=== PATIENT | female | born 1970 | race Caucasian/White ===

== ENCOUNTER 2020-11-15 13:32 | Inpatient (IN) | payer MEDICARE, OTHER ==
[~2020-11-15] VITALS: Ht 177.8 cm; Wt 85.7 kg
[2020-11-15] MEDS ORDERED: ALBU0.63 HHN (16:52)
[2020-11-15] MEDS ORDERED: BUDE0.5A HHN (16:52)
[2020-11-15] MEDS ORDERED: ESCI20TA PO (16:52)
[2020-11-15] MEDS ORDERED: FAMO-132 PO (16:52)
[2020-11-15] MEDS ORDERED: CYAN10006 IJ (16:52)
[2020-11-15] MEDS ORDERED: BLOO-668 IN (16:52)
[2020-11-15] MEDS ORDERED: ACET-2154 PO (16:52)
[2020-11-15] MEDS ORDERED: ARFO15VI HHN (16:52)
[2020-11-15] MEDS ORDERED: APIX5TAB PO (16:52)
[2020-11-15] MEDS ORDERED: LEVO100T PO (17:23)
[2020-11-15] MEDS ORDERED: FURO-151 PO (17:23)
[2020-11-15] MEDS ORDERED: GABA-532 PO ×2 (17:23)
[2020-11-15] MEDS ORDERED: GABA800T PO (17:23)
[2020-11-15] MEDS ORDERED: POTA10CA43 PO (17:23)
[2020-11-15] MEDS ORDERED: LEVA0.6320 HHN (17:23)
[2020-11-15] MEDS ORDERED: PRIM50TA27 PO (17:23)
[2020-11-15] MEDS ORDERED: PRED1TAB PO (17:23)
[2020-11-15] MEDS ORDERED: OLAN10TA3 PO (17:23)
[2020-11-15] MEDS ORDERED: FOLI1TAB94 PO (17:23)
[2020-11-15] MEDS ORDERED: GABA800T11 PO (17:23)
[2020-11-15] MEDS ORDERED: IPRA0.2S48 NEB (17:23)
[2020-11-15] MEDS ORDERED: METF500T PO (17:23)
[2020-11-15] MEDS ORDERED: PANT40TA2 PO (17:23)
[2020-11-15 18:10] VITALS: BP 102/63
--- NOTE | 2020-11-15 18:20 | NUR ---
Patient admitted from [facility], alert, oriented x4, medications varified with dr acuna
[2020-11-15] MEDS ORDERED: ALBU2.5V38 IH (18:50)
[2020-11-15] MEDS ORDERED: GABA300C PO (18:54)
[2020-11-15] MEDS ORDERED: HYDR-3972 PO (18:57)
[2020-11-15 20:13] VITALS: BP 95/56
[2020-11-15] MEDS ORDERED: DEXTROSE 50% 50 ML DISP.SYRIN IV PRN (20:15)
[2020-11-15] MEDS ORDERED: Medication Not On Formulary EA (Olanzapine (Zyprexa) 10 MG) PO SCH (21:00)
[2020-11-15] MEDS ORDERED: BLOOD SUGAR DIAGNOSTIC 1 EACH STRIP VI SCH (21:00)
[2020-11-15] MEDS: APIXABAN 5 MG TABLET PO SCH (21:05)
[2020-11-15] MEDS: HYDROCODONE/APAP 5-325MG TABLET PO PRN (21:05)
[2020-11-15] MEDS: PRIMIDONE 50 MG TABLET PO SCH (21:06)
[2020-11-15] MEDS: BLOOD SUGAR DIAGNOSTIC 1 EACH STRIP VI SCH (21:06)
[2020-11-15] MEDS: OLANZAPINE 5 MG TABLET PO SCH (21:06)
[2020-11-15] MEDS: GABAPENTIN 300 MG CAPSULE PO SCH (21:06)
[2020-11-15] MEDS: INSULIN REGULAR, HUMAN 300 UNIT/3 ML VIAL SQ PRN (21:29)
[2020-11-15] MEDS: ALBUTEROL SULFATE 2.5 MG/3 ML NEBU IH SCH ×2 (21:40→23:30)
[2020-11-15] MEDS: IPRATROPIUM BROMIDE 0.5 MG/2.5 ML NEBU NEB SCH ×2 (21:40→23:30)
[2020-11-16] MEDS ORDERED: LEVALBUTEROL HCL NEB 0.63 MG/3 ML NEBU NEB SCH
[2020-11-16] MEDS: ALBUTEROL SULFATE 2.5 MG/3 ML NEBU IH SCH ×6 (03:30→22:34)
[2020-11-16] MEDS: IPRATROPIUM BROMIDE 0.5 MG/2.5 ML NEBU NEB SCH ×6 (03:30→22:34)
[2020-11-16 04:00] VITALS: BP 102/67
[2020-11-16] MEDS: LEVOTHYROXINE SODIUM 100 MCG TABLET PO SCH (06:02)
[2020-11-16] MEDS: PANTOPRAZOLE SODIUM 40 MG TABLET.DR PO SCH ×2 (06:02→10:32)
[2020-11-16] MEDS: BLOOD SUGAR DIAGNOSTIC 1 EACH STRIP VI SCH ×4 (06:06→20:12)
--- NOTE | 2020-11-16 06:17 | NUR ---
Admitted 50 year old Female with diagnosis COPD Exacerbation. Pt in No Acute Distress, no SOB, on 3L NC saturating @94%. C/o 5/10 pain in both ankles " burning sensation" Administered NORCO PRN, effective. VSS. Pt oriented to ARU, floor, assigned room number, call light usage, pt verbalized understanding. Pt A&Ox4, able to make needs known. Medications from sending facility entered. Dr. Reinoso and Dr. Jennings aware of admission. Pt unable to ambulate, bedbound. Incontinent of both B?B in diaper. Kept clean dry and comfortable. MRSA swab sent to lab. Belongings inventoried. slep well throughout the night. No new changes. Call light and belongings within reach. Safety measures in place. Will continue with plan of care and endorse to day shift nurse.
[2020-11-16 08:16] VITALS: BP 137/53
[2020-11-16] MEDS ORDERED: Medication Not On Formulary EA (Escitalopram Oxalate (Lexapro) 20 MG) PO SCH (09:00)
[2020-11-16] MEDS ORDERED: FAMOTIDINE 20 MG TABLET PO SCH (09:00)
[2020-11-16] MEDS ORDERED: predniSONE 1 MG TABLET PO SCH (09:00)
[2020-11-16] MEDS ORDERED: BUDESONIDE 0.5 MG/2 ML NEBU IH SCH (09:00)
[2020-11-16] MEDS ORDERED: POTASSIUM CHLORIDE 10 MEQ TAB.PRT.SR PO SCH (09:00)
[2020-11-16] MEDS: GABAPENTIN 100 MG CAPSULE PO SCH ×2 (10:32→15:47)
[2020-11-16] MEDS: ESCITALOPRAM OXALATE 10 MG TABLET PO SCH (10:32)
[2020-11-16] MEDS: FUROSEMIDE 40 MG TABLET PO SCH ×2 (10:32→16:49)
[2020-11-16] MEDS: FOLIC ACID 1 MG TABLET PO SCH (10:32)
[2020-11-16] MEDS: predniSONE 5 MG TABLET PO SCH (10:32)
[2020-11-16] MEDS: METFORMIN HCL 500 MG TABLET PO SCH ×2 (10:33→16:49)
[2020-11-16] MEDS: APIXABAN 5 MG TABLET PO SCH ×2 (10:35→16:51)
[2020-11-16] MEDS: HYDROCODONE/APAP 5-325MG TABLET PO PRN ×3 (10:46→23:11)
[2020-11-16 15:36] VITALS: BP 96/54
[2020-11-16] MEDS: INSULIN REGULAR, HUMAN 300 UNIT/3 ML VIAL SQ PRN (17:18)
[2020-11-16] MEDS: ACETAMINOPHEN 325 MG TABLET PO PRN (19:55)
[2020-11-16 20:42] VITALS: BP 105/58
[2020-11-16] MEDS: PRIMIDONE 50 MG TABLET PO SCH (21:44)
[2020-11-16] MEDS: GABAPENTIN 300 MG CAPSULE PO SCH (21:44)
[2020-11-16] MEDS: OLANZAPINE 5 MG TABLET PO SCH (21:44)
[2020-11-17] MEDS: ALBUTEROL SULFATE 2.5 MG/3 ML NEBU IH SCH ×6 (02:21→23:08)
[2020-11-17] MEDS: IPRATROPIUM BROMIDE 0.5 MG/2.5 ML NEBU NEB SCH ×6 (02:21→23:08)
[2020-11-17 04:00] VITALS: BP 102/56
--- NOTE | 2020-11-17 05:03 | NUR ---
Starting of shift received Pt in No Acute Distress, no SOB, Pt has dx of COPD on 3L NC saturating @96%. All due medication administered PO as ordered and tolerated well, C/o moderate pain in both ankles " aching Administered NORCO PRN, Ice pack offered and effective. VSS. Pt A&Ox4, able to make needs known. Pt unable to ambulate, bedbound. Incontinent of both B/B in diaper. Kept clean dry and comfortable. slept well throughout the night. No further c/o pain reported Call light and belongings within reach. Safety measures in place. Will continue with plan of care and endorse to day shift nurse accordingly.
[2020-11-17 05:46] LABS: BASOPHILS % (AUTO) 0.7 % (0.0-2.0); EOSINOPHILS # (AUTO) 0.1 K/uL (0.0-0.7); EOSINOPHILS % (AUTO) 1.9 % (0.0-7.0); HEMATOCRIT 30.6 % (31.2-41.9); HEMOGLOBIN 9.7 g/dL (10.9-14.3); LYMPHOCYTES # (AUTO) 2.6 K/uL (20.0-40.0); LYMPHOCYTES % (AUTO) 36.2 % (20.5-51.5); MEAN CORPUSCULAR HEMOGLOBIN 29.2 uug (24.7-32.8); MEAN CORPUSCULAR HGB CONC 32 g/dL (32.3-35.6); MEAN CORPUSCULAR VOLUME 91.8 fL (75.5-95.3); MONOCYTES # (AUTO) 0.5 K/uL (2.0-10.0); MONOCYTES % (AUTO) 6.5 % (0.0-11.0); NEUTROPHILS # (AUTO) 3.9 K/uL (1.8-8.9); NEUTROPHILS % (AUTO) 54.7 % (38.5-71.5); PLATELET COUNT (AUTO) 315 K/uL (179-408); RED BLOOD CELL COUNT(AUTO) 3.33 MIL/uL (3.63-4.92); WHITE BLOOD COUNT (AUTO) 7.1 K/uL (3.8-11.8)
[2020-11-17 06:10] LABS: BILIRUBIN,TOTAL 0.3 mg/dL (0.2-1.0); CREATININE 0.7 mg/dL (0.6-1.3); MAGNESIUM 1.9 mg/dL (1.8-2.4); POTASSIUM 3.8 mmol/L (3.5-5.1); TOTAL PROTEIN, SERUM 6.6 g/dL (6.4-8.2)
[2020-11-17] MEDS: LEVOTHYROXINE SODIUM 100 MCG TABLET PO SCH (06:36)
[2020-11-17] MEDS: PANTOPRAZOLE SODIUM 40 MG TABLET.DR PO SCH (06:36)
[2020-11-17] MEDS: BLOOD SUGAR DIAGNOSTIC 1 EACH STRIP VI SCH ×4 (06:40→20:20)
[2020-11-17 08:00] VITALS: BP 99/35
[2020-11-17] MEDS: METFORMIN HCL 500 MG TABLET PO SCH ×2 (08:22→17:56)
[2020-11-17] MEDS: FOLIC ACID 1 MG TABLET PO SCH (08:23)
[2020-11-17] MEDS: FUROSEMIDE 40 MG TABLET PO SCH ×2 (08:23→17:56)
[2020-11-17] MEDS: ESCITALOPRAM OXALATE 10 MG TABLET PO SCH (08:23)
[2020-11-17] MEDS: GABAPENTIN 100 MG CAPSULE PO SCH ×2 (08:23→15:08)
[2020-11-17] MEDS: POTASSIUM CHLORIDE 20 MEQ TAB.PRT.SR PO SCH (08:23)
[2020-11-17] MEDS: predniSONE 5 MG TABLET PO SCH (08:23)
[2020-11-17] MEDS: HYDROCODONE/APAP 5-325MG TABLET PO PRN ×3 (08:24→21:40)
[2020-11-17] MEDS: APIXABAN 5 MG TABLET PO SCH ×2 (08:25→17:58)
[2020-11-17 15:03] VITALS: BP 113/50
--- NOTE | 2020-11-17 15:18 | NUR ---
Patient in bed alert and oriented x 4 , cooperative upon assessment. On oxygen via nasal cannula at 4 LPM saturating at 94-95%. No sob noted. Seen by doctor Miller. All due meds given per MD order. Went off the unit for an hour for therapy. All needs attended in a timely manner. Call light placed within reach.
[2020-11-17] MEDS: OLANZAPINE 5 MG TABLET PO SCH (20:17)
[2020-11-17] MEDS: PRIMIDONE 50 MG TABLET PO SCH (20:17)
[2020-11-17] MEDS: GABAPENTIN 300 MG CAPSULE PO SCH (20:18)
[2020-11-17] MEDS: INSULIN REGULAR, HUMAN 300 UNIT/3 ML VIAL SQ PRN (20:20)
[2020-11-17 20:57] VITALS: BP 100/58
--- NOTE | 2020-11-17 21:13 | NUR ---
Received pt resting in bed and watching tv. AAO x4. No acute distress noted. Due meds given as ordered. Accucheck 107, no insulin as per sliding scale. Turned and repositioned, both heels offloaded. Safety measures maintained. Call light and personal items within reach. Will continue to monitor.
[2020-11-18] MEDS: IPRATROPIUM BROMIDE 0.5 MG/2.5 ML NEBU NEB SCH ×6 (03:09→23:41)
[2020-11-18] MEDS: ALBUTEROL SULFATE 2.5 MG/3 ML NEBU IH SCH ×6 (03:09→23:41)
[2020-11-18 04:40] VITALS: BP 106/57
[2020-11-18] MEDS: LEVOTHYROXINE SODIUM 100 MCG TABLET PO SCH (06:18)
[2020-11-18] MEDS: PANTOPRAZOLE SODIUM 40 MG TABLET.DR PO SCH (06:18)
[2020-11-18] MEDS: BLOOD SUGAR DIAGNOSTIC 1 EACH STRIP VI SCH ×4 (06:35→20:02)
[2020-11-18 08:00] VITALS: BP 101/64
[2020-11-18] MEDS: FUROSEMIDE 40 MG TABLET PO SCH ×2 (08:28→17:57)
[2020-11-18] MEDS: ESCITALOPRAM OXALATE 10 MG TABLET PO SCH (08:28)
[2020-11-18] MEDS: FOLIC ACID 1 MG TABLET PO SCH (08:28)
[2020-11-18] MEDS: predniSONE 5 MG TABLET PO SCH (08:28)
[2020-11-18] MEDS: METFORMIN HCL 500 MG TABLET PO SCH ×2 (08:28→17:57)
[2020-11-18] MEDS: GABAPENTIN 100 MG CAPSULE PO SCH ×2 (08:28→14:33)
[2020-11-18] MEDS: HYDROCODONE/APAP 5-325MG TABLET PO PRN ×3 (08:29→20:49)
[2020-11-18] MEDS: POTASSIUM CHLORIDE 20 MEQ TAB.PRT.SR PO SCH (08:29)
[2020-11-18] MEDS: APIXABAN 5 MG TABLET PO SCH ×2 (08:36→18:01)
--- NOTE | 2020-11-18 14:42 | NUR ---
INDIVIDUALIZED PLAN OF CARE
[2020-11-18 16:17] VITALS: BP 104/59
[2020-11-18] MEDS: GABAPENTIN 300 MG CAPSULE PO SCH (20:01)
[2020-11-18] MEDS: OLANZAPINE 5 MG TABLET PO SCH (20:01)
[2020-11-18] MEDS: PRIMIDONE 50 MG TABLET PO SCH (20:01)
[2020-11-18] MEDS: INSULIN REGULAR, HUMAN 300 UNIT/3 ML VIAL SQ PRN (20:03)
[2020-11-18 20:25] VITALS: BP 100/59
--- NOTE | 2020-11-18 20:49 | NUR ---
Received pt resting in bed. AAO x4. No acute distress noted. C/o 6/10 pain on the right ankle. PRN [place] and other due meds given as ordered. Safety measures maintained. Call light and personal items within reach. Will continue to monitor.
[2020-11-19] MEDS: ALBUTEROL SULFATE 2.5 MG/3 ML NEBU IH SCH ×6 (02:32→23:18)
[2020-11-19] MEDS: IPRATROPIUM BROMIDE 0.5 MG/2.5 ML NEBU NEB SCH ×6 (02:32→23:18)
[2020-11-19 04:20] VITALS: BP 102/61
[2020-11-19] MEDS: PANTOPRAZOLE SODIUM 40 MG TABLET.DR PO SCH (06:16)
[2020-11-19] MEDS: LEVOTHYROXINE SODIUM 100 MCG TABLET PO SCH (06:16)
[2020-11-19] MEDS: BLOOD SUGAR DIAGNOSTIC 1 EACH STRIP VI SCH ×4 (06:47→20:38)
[2020-11-19] MEDS: POTASSIUM CHLORIDE 20 MEQ TAB.PRT.SR PO SCH (08:22)
[2020-11-19] MEDS: FOLIC ACID 1 MG TABLET PO SCH (08:22)
[2020-11-19] MEDS: METFORMIN HCL 500 MG TABLET PO SCH ×2 (08:22→17:42)
[2020-11-19] MEDS: predniSONE 5 MG TABLET PO SCH (08:22)
[2020-11-19] MEDS: FUROSEMIDE 40 MG TABLET PO SCH ×2 (08:22→17:42)
[2020-11-19] MEDS: GABAPENTIN 100 MG CAPSULE PO SCH ×2 (08:23→15:20)
[2020-11-19] MEDS: ESCITALOPRAM OXALATE 10 MG TABLET PO SCH (08:23)
[2020-11-19] MEDS: APIXABAN 5 MG TABLET PO SCH ×2 (08:23→17:43)
[2020-11-19] MEDS: HYDROCODONE/APAP 5-325MG TABLET PO PRN ×3 (09:35→22:25)
[2020-11-19 11:06] VITALS: BP 103/54
[2020-11-19] MEDS: ACETAMINOPHEN 325 MG TABLET PO PRN ×2 (11:55→20:41)
[2020-11-19 16:36] VITALS: BP 98/57
--- NOTE | 2020-11-19 18:39 | NUR ---
Pt watching TV, in no acute distress. Pt A&Ox4, able to verbalize needs, all needs met at this time. Due medications given per order, no a/r noted. Pt requested PRN [place] for Right ankle pain, administered per order, per pt effective. Pt noted some relief from ice pack. Pt denied SOB at rest and during ARU therapeutic activities. Dr. Miller at bedside this am, report given. Pt kept clean and dry. Safety measures, fall precautions, aspiration precautions in place. Call light and belongings within reach. Will endorse to police shift commander nurse for continuity of care.
[2020-11-19 20:00] VITALS: BP 100/60
[2020-11-19] MEDS: PRIMIDONE 50 MG TABLET PO SCH (20:35)
[2020-11-19] MEDS: GABAPENTIN 300 MG CAPSULE PO SCH (20:35)
[2020-11-19] MEDS: OLANZAPINE 5 MG TABLET PO SCH (20:35)
[2020-11-20] MEDS: IPRATROPIUM BROMIDE 0.5 MG/2.5 ML NEBU NEB SCH ×5 (03:39→20:00)
[2020-11-20] MEDS: ALBUTEROL SULFATE 2.5 MG/3 ML NEBU IH SCH ×5 (03:39→20:00)
[2020-11-20 04:00] VITALS: BP 99/55
[2020-11-20] MEDS: LEVOTHYROXINE SODIUM 100 MCG TABLET PO SCH (06:07)
[2020-11-20] MEDS: PANTOPRAZOLE SODIUM 40 MG TABLET.DR PO SCH (06:07)
[2020-11-20] MEDS: BLOOD SUGAR DIAGNOSTIC 1 EACH STRIP VI SCH ×4 (06:12→20:41)
[2020-11-20 07:45] VITALS: BP 101/55
[2020-11-20] MEDS: GABAPENTIN 100 MG CAPSULE PO SCH ×2 (08:22→15:58)
[2020-11-20] MEDS: METFORMIN HCL 500 MG TABLET PO SCH ×2 (08:22→18:04)
[2020-11-20] MEDS: POTASSIUM CHLORIDE 20 MEQ TAB.PRT.SR PO SCH (08:22)
[2020-11-20] MEDS: FOLIC ACID 1 MG TABLET PO SCH (08:23)
[2020-11-20] MEDS: predniSONE 5 MG TABLET PO SCH (08:23)
[2020-11-20] MEDS: FUROSEMIDE 40 MG TABLET PO SCH ×2 (08:23→16:00)
[2020-11-20] MEDS: ESCITALOPRAM OXALATE 10 MG TABLET PO SCH (08:23)
[2020-11-20] MEDS: APIXABAN 5 MG TABLET PO SCH ×2 (08:24→16:02)
[2020-11-20] MEDS ORDERED: CYANOCOBALAMIN 1000 MCG/ML VIAL IM SCH (09:00)
[2020-11-20] MEDS: HYDROCODONE/APAP 5-325MG TABLET PO PRN ×3 (09:08→21:38)
[2020-11-20 16:00] VITALS: BP 103/58
--- NOTE | 2020-11-20 18:52 | NUR ---
no distress noted, patient participated with PT, OT services, tolerated good, no cough, no congestion noted, no chills, no fever noted
[2020-11-20] MEDS: PRIMIDONE 50 MG TABLET PO SCH (20:36)
[2020-11-20] MEDS: OLANZAPINE 5 MG TABLET PO SCH (20:36)
[2020-11-20] MEDS: GABAPENTIN 300 MG CAPSULE PO SCH (20:36)
[2020-11-20 21:27] VITALS: BP 101/61
[2020-11-21] MEDS: ALBUTEROL SULFATE 2.5 MG/3 ML NEBU IH SCH ×7 (00:07→23:27)
[2020-11-21] MEDS: IPRATROPIUM BROMIDE 0.5 MG/2.5 ML NEBU NEB SCH ×7 (00:07→23:27)
--- NOTE | 2020-11-21 02:25 | NUR ---
AAOx4 Needs attended. Patient incontinent of bowel and bladder. Kept clean and dry. No BM noted this shift. VSS. Medicated for pain as needed. Relief noted. Right ankle swollen. Will monitor patient. No acute distress noted. Fall precautions maintained. Siderails up for safety. Call wilson within reach.
[2020-11-21 05:30] VITALS: BP 128/83
[2020-11-21] MEDS: LEVOTHYROXINE SODIUM 100 MCG TABLET PO SCH (06:07)
[2020-11-21] MEDS: PANTOPRAZOLE SODIUM 40 MG TABLET.DR PO SCH (06:07)
[2020-11-21] MEDS: BLOOD SUGAR DIAGNOSTIC 1 EACH STRIP VI SCH ×4 (06:36→21:32)
--- NOTE | 2020-11-21 06:39 | NUR ---
accucheck 96
[2020-11-21 06:42] LABS: BASOPHILS % (AUTO) 0.6 % (0.0-2.0); EOSINOPHILS # (AUTO) 0.1 K/uL (0.0-0.7); EOSINOPHILS % (AUTO) 1.4 % (0.0-7.0); HEMATOCRIT 31.7 % (31.2-41.9); HEMOGLOBIN 10.1 g/dL (10.9-14.3); LYMPHOCYTES # (AUTO) 2.3 K/uL (20.0-40.0); LYMPHOCYTES % (AUTO) 32.7 % (20.5-51.5); MEAN CORPUSCULAR HEMOGLOBIN 29.8 uug (24.7-32.8); MEAN CORPUSCULAR HGB CONC 32 g/dL (32.3-35.6); MEAN CORPUSCULAR VOLUME 93.4 fL (75.5-95.3); MONOCYTES # (AUTO) 0.5 K/uL (2.0-10.0); MONOCYTES % (AUTO) 7.3 % (0.0-11.0); NEUTROPHILS # (AUTO) 4.1 K/uL (1.8-8.9); PLATELET COUNT (AUTO) 337 K/uL (179-408)
[2020-11-21 06:57] LABS: CREATININE 0.6 mg/dL (0.6-1.3); MAGNESIUM 1.9 mg/dL (1.8-2.4); PHOSPHOROUS 4.9 mg/dL (2.5-4.9); POTASSIUM 3.3 mmol/L (3.5-5.1)
[2020-11-21 08:00] VITALS: BP 117/69
[2020-11-21] MEDS: FOLIC ACID 1 MG TABLET PO SCH (08:33)
[2020-11-21] MEDS: METFORMIN HCL 500 MG TABLET PO SCH ×2 (08:33→17:15)
[2020-11-21] MEDS: GABAPENTIN 100 MG CAPSULE PO SCH ×2 (08:34→15:12)
[2020-11-21] MEDS: ESCITALOPRAM OXALATE 10 MG TABLET PO SCH (08:34)
[2020-11-21] MEDS: POTASSIUM CHLORIDE 20 MEQ TAB.PRT.SR PO SCH (08:34)
[2020-11-21] MEDS: FUROSEMIDE 40 MG TABLET PO SCH ×2 (08:34→17:15)
[2020-11-21] MEDS: predniSONE 5 MG TABLET PO SCH (08:34)
[2020-11-21] MEDS: HYDROCODONE/APAP 5-325MG TABLET PO PRN ×3 (08:35→21:32)
[2020-11-21] MEDS: APIXABAN 5 MG TABLET PO SCH ×2 (08:38→17:17)
[2020-11-21] MEDS ORDERED: POTASSIUM CHLORIDE 20 MEQ TAB.PRT.SR PO ONE (10:30)
--- NOTE | 2020-11-21 14:30 | NUR ---
INTERDISCIPLINARY TEAM CONFERENCE
[2020-11-21] MEDS ORDERED: POTASSIUM CHLORIDE 10 MEQ TAB.PRT.SR PO ONE (16:00)
[2020-11-21 16:57] VITALS: BP 103/54
[2020-11-21] MEDS: INSULIN REGULAR, HUMAN 300 UNIT/3 ML VIAL SQ PRN (17:32)
--- NOTE | 2020-11-21 19:05 | NUR ---
Pt in no acute distress, all needs met at this time. Pt denied SOB, cough. Due medications given per order, no a/r noted. Medicated for ankle pain per order as needed. Pt kept clean and dry. Pt tolerated Rehab therapy well today. Fall precautions in place. Call light and belongings within reach. Will endorse to production administrative assistant nurse for continuity of care.
--- NOTE | 2020-11-21 19:15 | NUR ---
Awake during initial rounds, watching TV. AAOx 4. Family at bedside. No s/s of respiratory distress. HOB elevated. On continuos O2 at 3L/min via NC, saturating 99% at this time. Denies any pain/discomforts noted. DARRIN midline intact and patent. No s/s of infiltration noted. No s/s of hypo/hyperglycemia. Safety measures and fall prevention maintained. Continue care as planned.
[2020-11-21 20:00] VITALS: BP 118/49
[2020-11-21] MEDS: PRIMIDONE 50 MG TABLET PO SCH (21:22)
[2020-11-21] MEDS: OLANZAPINE 5 MG TABLET PO SCH (21:22)
[2020-11-21] MEDS: GABAPENTIN 300 MG CAPSULE PO SCH (21:22)
[2020-11-22] MEDS: ALBUTEROL SULFATE 2.5 MG/3 ML NEBU IH SCH ×6 (03:16→23:10)
[2020-11-22] MEDS: IPRATROPIUM BROMIDE 0.5 MG/2.5 ML NEBU NEB SCH ×6 (03:16→23:10)
[2020-11-22 04:00] VITALS: BP 107/62
[2020-11-22] MEDS: BLOOD SUGAR DIAGNOSTIC 1 EACH STRIP VI SCH ×4 (05:49→20:31)
[2020-11-22] MEDS: PANTOPRAZOLE SODIUM 40 MG TABLET.DR PO SCH (05:50)
[2020-11-22] MEDS: LEVOTHYROXINE SODIUM 100 MCG TABLET PO SCH (05:50)
--- NOTE | 2020-11-22 06:10 | NUR ---
Vs stable. Slept good. Medicated once for pain with relief. No further complaint presented. All needs attended and met. No significant event reported all night. Continue current rehab plan of care.
[2020-11-22 06:45] LABS: CREATININE 0.6 mg/dL (0.6-1.3); POTASSIUM 3.6 mmol/L (3.5-5.1)
[2020-11-22 08:00] VITALS: BP 100/55
[2020-11-22] MEDS: HYDROCODONE/APAP 5-325MG TABLET PO PRN ×3 (09:00→21:30)
[2020-11-22] MEDS: FOLIC ACID 1 MG TABLET PO SCH (10:39)
[2020-11-22] MEDS: METFORMIN HCL 500 MG TABLET PO SCH ×2 (10:39→17:13)
[2020-11-22] MEDS: GABAPENTIN 100 MG CAPSULE PO SCH ×2 (10:40→14:11)
[2020-11-22] MEDS: FUROSEMIDE 40 MG TABLET PO SCH ×2 (10:40→17:13)
[2020-11-22] MEDS: POTASSIUM CHLORIDE 20 MEQ TAB.PRT.SR PO SCH (10:40)
[2020-11-22] MEDS: ESCITALOPRAM OXALATE 10 MG TABLET PO SCH (10:40)
[2020-11-22] MEDS: predniSONE 5 MG TABLET PO SCH (10:41)
[2020-11-22] MEDS: APIXABAN 5 MG TABLET PO SCH ×2 (10:42→17:16)
[2020-11-22 16:00] VITALS: BP 103/52
[2020-11-22 20:21] VITALS: BP 101/48
[2020-11-22] MEDS: GABAPENTIN 300 MG CAPSULE PO SCH (20:25)
[2020-11-22] MEDS: OLANZAPINE 5 MG TABLET PO SCH (20:25)
[2020-11-22] MEDS: PRIMIDONE 50 MG TABLET PO SCH (20:31)
[2020-11-23] MEDS: IPRATROPIUM BROMIDE 0.5 MG/2.5 ML NEBU NEB SCH ×6 (02:59→22:30)
[2020-11-23] MEDS: ALBUTEROL SULFATE 2.5 MG/3 ML NEBU IH SCH ×6 (03:00→22:30)
[2020-11-23 04:18] VITALS: BP 102/48
--- NOTE | 2020-11-23 06:00 | NUR ---
Shift End Report: VS stable, Medicated once for pain with help. No further complaint presented. Slept well. No s/s of hypo/hyperglycemia. All needs attended and met. No significant event reported all night. Continue current rehab plan of care.
[2020-11-23] MEDS: PANTOPRAZOLE SODIUM 40 MG TABLET.DR PO SCH (06:20)
[2020-11-23] MEDS: LEVOTHYROXINE SODIUM 100 MCG TABLET PO SCH (06:20)
[2020-11-23] MEDS: BLOOD SUGAR DIAGNOSTIC 1 EACH STRIP VI SCH ×4 (06:23→21:14)
[2020-11-23 07:36] VITALS: BP 100/54
--- NOTE | 2020-11-23 08:00 | NUR ---
RECEIVED CHANGE OF SHIFT REPORT. PT A/OX4 ON 3L O2 VIA NC SATURATING AT 95, NO SIGNS OF DISTRESS, NO REPORTS OF PAIN AT THIS TIME. PT AMBULATORY WITH MIN ASSIST, PT INCONTINENT, WEARING DIAPER. PT HAS IV ACCESS ON THE RIGHT UPPER ARM MIDLINE, DRESSING CLEAN DRY AND INTACT. BLOOD SUGAR 86, NO COVERAGE GIVEN. BED LOW AND LOCKED, CALL LIGHT WITHIN REACH, WILL CONTINUE WITH PLAN OF CARE.
[2020-11-23] MEDS: POTASSIUM CHLORIDE 20 MEQ TAB.PRT.SR PO SCH (08:09)
[2020-11-23] MEDS: GABAPENTIN 100 MG CAPSULE PO SCH ×2 (08:09→15:04)
[2020-11-23] MEDS: ESCITALOPRAM OXALATE 10 MG TABLET PO SCH (08:09)
[2020-11-23] MEDS: FOLIC ACID 1 MG TABLET PO SCH (08:09)
[2020-11-23] MEDS: predniSONE 5 MG TABLET PO SCH (08:09)
[2020-11-23] MEDS: FUROSEMIDE 40 MG TABLET PO SCH ×2 (08:09→17:13)
[2020-11-23] MEDS: METFORMIN HCL 500 MG TABLET PO SCH ×2 (08:09→17:13)
[2020-11-23] MEDS: APIXABAN 5 MG TABLET PO SCH ×2 (08:10→17:15)
[2020-11-23] MEDS: HYDROCODONE/APAP 5-325MG TABLET PO PRN ×3 (08:19→21:10)
--- NOTE | 2020-11-23 15:00 | NUR ---
pt O2 levels titrated to 1L via NC, pt tolerating well, saturating at 99%. will continue to monitor.
[2020-11-23 15:29] VITALS: BP 124/49
[2020-11-23] MEDS: INSULIN REGULAR, HUMAN 300 UNIT/3 ML VIAL SQ PRN (17:17)
--- NOTE | 2020-11-23 18:34 | NUR ---
pt in bed resting, a/ox4, on 1L O2 via NC, ambulatory with assist, voids via diaper, pt has IV access on the right upper arm, midline, patent and intact. all medications given as ordered, all needed met this shift, call light within reach, no signs of distress, no reports of mei at this time. will endorse to oncoming nurse.
[2020-11-23 20:40] VITALS: BP 108/55
[2020-11-23] MEDS: GABAPENTIN 300 MG CAPSULE PO SCH (21:10)
[2020-11-23] MEDS: PRIMIDONE 50 MG TABLET PO SCH (21:10)
[2020-11-23] MEDS: OLANZAPINE 5 MG TABLET PO SCH (21:10)
[2020-11-24] MEDS: IPRATROPIUM BROMIDE 0.5 MG/2.5 ML NEBU NEB SCH ×5 (03:30→19:57)
[2020-11-24] MEDS: ALBUTEROL SULFATE 2.5 MG/3 ML NEBU IH SCH ×5 (03:30→19:57)
[2020-11-24 04:55] VITALS: BP 95/57
--- NOTE | 2020-11-24 05:42 | NUR ---
Shift End Report: VS stable. Slept in between care. Medicated once for pain with help. No further complaint presented after. All needs attended and met. No significant event reported all night. Continue care as planned.
[2020-11-24] MEDS: PANTOPRAZOLE SODIUM 40 MG TABLET.DR PO SCH (06:21)
[2020-11-24] MEDS: LEVOTHYROXINE SODIUM 100 MCG TABLET PO SCH (06:21)
[2020-11-24] MEDS: BLOOD SUGAR DIAGNOSTIC 1 EACH STRIP VI SCH ×4 (06:25→20:14)
[2020-11-24 08:00] VITALS: BP 98/53
[2020-11-24] MEDS: FOLIC ACID 1 MG TABLET PO SCH (08:23)
[2020-11-24] MEDS: GABAPENTIN 100 MG CAPSULE PO SCH ×2 (08:23→14:37)
[2020-11-24] MEDS: METFORMIN HCL 500 MG TABLET PO SCH ×2 (08:23→17:01)
[2020-11-24] MEDS: POTASSIUM CHLORIDE 20 MEQ TAB.PRT.SR PO SCH (08:23)
[2020-11-24] MEDS: FUROSEMIDE 40 MG TABLET PO SCH ×2 (08:23→16:57)
[2020-11-24] MEDS: predniSONE 5 MG TABLET PO SCH (08:24)
[2020-11-24] MEDS: ESCITALOPRAM OXALATE 10 MG TABLET PO SCH (08:24)
[2020-11-24] MEDS: APIXABAN 5 MG TABLET PO SCH ×2 (08:26→16:57)
[2020-11-24] MEDS: HYDROCODONE/APAP 5-325MG TABLET PO PRN ×3 (08:34→20:39)
[2020-11-24 16:36] VITALS: BP 96/60
--- NOTE | 2020-11-24 18:26 | NUR ---
Patient continue on pain management prior to therapy with good effect. Patient continue blood sugar monitoring with sliding scale protocol. tolerated well. will continue monitor
[2020-11-24] MEDS: OLANZAPINE 5 MG TABLET PO SCH (20:10)
[2020-11-24] MEDS: GABAPENTIN 300 MG CAPSULE PO SCH (20:10)
[2020-11-24] MEDS: PRIMIDONE 50 MG TABLET PO SCH (20:10)
[2020-11-24 20:26] VITALS: BP 91/51
[2020-11-25] MEDS: IPRATROPIUM BROMIDE 0.5 MG/2.5 ML NEBU NEB SCH ×4 (00:09→11:31)
[2020-11-25] MEDS: ALBUTEROL SULFATE 2.5 MG/3 ML NEBU IH SCH ×4 (00:09→11:31)
[2020-11-25 04:43] VITALS: BP 101/52
[2020-11-25] MEDS: LEVOTHYROXINE SODIUM 100 MCG TABLET PO SCH (06:13)
[2020-11-25] MEDS: PANTOPRAZOLE SODIUM 40 MG TABLET.DR PO SCH (06:13)
[2020-11-25] MEDS: BLOOD SUGAR DIAGNOSTIC 1 EACH STRIP VI SCH ×4 (06:44→20:40)
--- NOTE | 2020-11-25 07:16 | NUR ---
Patient slept well.No acute distress noted through out the shift.ALert x4.O2 at 3LPM via NC.Compliant with medication.[place] was given last night due to pain on rt ankle with good effect. all needs anticipated and met accordingly.Will endorse to oncoming shift.VSS
[2020-11-25 08:00] VITALS: BP 108/60
[2020-11-25] MEDS: FOLIC ACID 1 MG TABLET PO SCH (08:13)
[2020-11-25] MEDS: FUROSEMIDE 40 MG TABLET PO SCH ×2 (08:13→16:00)
[2020-11-25] MEDS: METFORMIN HCL 500 MG TABLET PO SCH ×2 (08:13→17:48)
[2020-11-25] MEDS: predniSONE 5 MG TABLET PO SCH (08:14)
[2020-11-25] MEDS: ESCITALOPRAM OXALATE 10 MG TABLET PO SCH (08:14)
[2020-11-25] MEDS: GABAPENTIN 100 MG CAPSULE PO SCH ×2 (08:14→15:01)
[2020-11-25] MEDS: POTASSIUM CHLORIDE 20 MEQ TAB.PRT.SR PO SCH (08:14)
[2020-11-25] MEDS: APIXABAN 5 MG TABLET PO SCH ×2 (08:16→16:02)
[2020-11-25] MEDS: HYDROCODONE/APAP 5-325MG TABLET PO PRN ×3 (08:22→20:37)
[2020-11-25] MEDS ORDERED: IPRATROPIUM BROMIDE 0.5 MG/2.5 ML NEBU NEB PRN (12:15)
[2020-11-25] MEDS ORDERED: ALBUTEROL SULFATE 2.5 MG/3 ML NEBU NEB PRN (12:15)
[2020-11-25 16:54] VITALS: BP 106/58
[2020-11-25 20:18] VITALS: BP 100/49
[2020-11-25] MEDS: OLANZAPINE 5 MG TABLET PO SCH (20:34)
[2020-11-25] MEDS: GABAPENTIN 300 MG CAPSULE PO SCH (20:34)
[2020-11-25] MEDS: PRIMIDONE 50 MG TABLET PO SCH (20:34)
[2020-11-26 04:18] VITALS: BP 99/53
[2020-11-26] MEDS: LEVOTHYROXINE SODIUM 100 MCG TABLET PO SCH (06:18)
[2020-11-26] MEDS: PANTOPRAZOLE SODIUM 40 MG TABLET.DR PO SCH (06:18)
[2020-11-26] MEDS: BLOOD SUGAR DIAGNOSTIC 1 EACH STRIP VI SCH ×4 (06:23→20:41)
--- NOTE | 2020-11-26 06:30 | NUR ---
Shift End Report: VS stable. Medicated once for right ankle pain with relief. No further complaint presented. Slept well. All needs attended and met. No significant event reported all night. Continue current rehab plan of care.
[2020-11-26 08:00] VITALS: BP 112/43
[2020-11-26] MEDS: GABAPENTIN 100 MG CAPSULE PO SCH ×2 (08:30→14:59)
[2020-11-26] MEDS: FOLIC ACID 1 MG TABLET PO SCH (08:30)
[2020-11-26] MEDS: FUROSEMIDE 40 MG TABLET PO SCH ×2 (08:30→16:57)
[2020-11-26] MEDS: METFORMIN HCL 500 MG TABLET PO SCH ×2 (08:30→17:00)
[2020-11-26] MEDS: POTASSIUM CHLORIDE 20 MEQ TAB.PRT.SR PO SCH (08:30)
[2020-11-26] MEDS: ESCITALOPRAM OXALATE 10 MG TABLET PO SCH (08:30)
[2020-11-26] MEDS: predniSONE 5 MG TABLET PO SCH (08:31)
[2020-11-26] MEDS: APIXABAN 5 MG TABLET PO SCH ×2 (08:32→16:58)
[2020-11-26] MEDS: HYDROCODONE/APAP 5-325MG TABLET PO PRN ×3 (08:34→20:38)
[2020-11-26 15:52] VITALS: BP 122/52
[2020-11-26] MEDS: ACETAMINOPHEN 325 MG TABLET PO PRN (17:42)
--- NOTE | 2020-11-26 18:15 | NUR ---
Pt finishing dinner, in no acute distress, all needs met at this time. Pt denied SOB, cough today. O2 saturation 95% on 3 L NC. Due medications given per order, no a/r noted. Pt medicated PRN for ankle pain per order. Pt kept clean and dry, 1 BM noted. Pt wondering about ordered Lasix, multiple voids noted today, ORIENTATION & MOBILITY SPECIALIST Nasrin Multani made aware. Pt participated with Rehab therapy today, tolerated well. Ankle brace on R ankle when OOB. Fall precautions in place. Call light and belongings within reach. Will endorse to assistant merchandise manager nurse for continuity of care.
[2020-11-26 20:00] VITALS: BP 104/60
[2020-11-26] MEDS: GABAPENTIN 300 MG CAPSULE PO SCH (20:37)
[2020-11-26] MEDS: OLANZAPINE 5 MG TABLET PO SCH (20:37)
[2020-11-26] MEDS: PRIMIDONE 50 MG TABLET PO SCH (20:37)
[2020-11-27 04:00] VITALS: BP 95/53
--- NOTE | 2020-11-27 06:15 | NUR ---
Shift End Report:VS stable. No significant event reported all night. All needs attended and met. Medicated once for right ankle pain with relief. No further complaint presented. BS WNL. No s/s of hypo/hyperglycemia. Continue care as planned.
[2020-11-27] MEDS: LEVOTHYROXINE SODIUM 100 MCG TABLET PO SCH (06:22)
[2020-11-27] MEDS: PANTOPRAZOLE SODIUM 40 MG TABLET.DR PO SCH (06:22)
[2020-11-27] MEDS: BLOOD SUGAR DIAGNOSTIC 1 EACH STRIP VI SCH ×4 (06:27→20:31)
[2020-11-27] MEDS: ACETAMINOPHEN 325 MG TABLET PO PRN ×2 (06:31→14:01)
[2020-11-27 07:57] VITALS: BP 92/56
[2020-11-27] MEDS: ESCITALOPRAM OXALATE 10 MG TABLET PO SCH (08:46)
[2020-11-27] MEDS: FUROSEMIDE 40 MG TABLET PO SCH (08:46)
[2020-11-27] MEDS: FOLIC ACID 1 MG TABLET PO SCH (08:46)
[2020-11-27] MEDS: POTASSIUM CHLORIDE 20 MEQ TAB.PRT.SR PO SCH (08:46)
[2020-11-27] MEDS: METFORMIN HCL 500 MG TABLET PO SCH ×2 (08:46→17:13)
[2020-11-27] MEDS: GABAPENTIN 100 MG CAPSULE PO SCH ×2 (08:46→14:01)
[2020-11-27] MEDS: HYDROCODONE/APAP 5-325MG TABLET PO PRN ×3 (08:47→22:04)
[2020-11-27] MEDS: predniSONE 5 MG TABLET PO SCH (08:47)
[2020-11-27] MEDS: APIXABAN 5 MG TABLET PO SCH ×2 (08:49→17:13)
--- NOTE | 2020-11-27 09:00 | NUR ---
Dr. Miller at bedside this am, report given.
[2020-11-27 16:04] VITALS: BP 95/54
[2020-11-27] MEDS: FUROSEMIDE 20 MG TABLET PO SCH (17:12)
--- NOTE | 2020-11-27 18:42 | NUR ---
Pt in no acute distress, talking on phone all needs met. Pt denied SOB at rest and upon exertion. O2 saturation 95% on 3 L NC. BS stable. Due medications given per order, no a/r noted. Pt requested PRN [place] for 5/10 right ankle pain, administered per order, per pt effective. BATTERY STARTER Nasrin Multani at bedside this afternoon with new orders, pt informed. Pt tolerated rehab therapy well today. Fall precautions in place. Call light and belongings within reach. Will endorse to night clerk auditor nurse for continuity of care.
[2020-11-27 20:27] VITALS: BP 96/57
[2020-11-27] MEDS: GABAPENTIN 300 MG CAPSULE PO SCH (20:27)
[2020-11-27] MEDS: OLANZAPINE 5 MG TABLET PO SCH (20:27)
[2020-11-27] MEDS: PRIMIDONE 50 MG TABLET PO SCH (20:27)
[2020-11-28 04:40] VITALS: BP 102/61
[2020-11-28 05:50] LABS: BASOPHILS # (AUTO) 0.1 K/uL (0.0-8.0); BASOPHILS % (AUTO) 0.8 % (0.0-2.0); EOSINOPHILS # (AUTO) 0.1 K/uL (0.0-0.7); EOSINOPHILS % (AUTO) 1.4 % (0.0-7.0); HEMATOCRIT 35.4 % (31.2-41.9); HEMOGLOBIN 11.4 g/dL (10.9-14.3); LYMPHOCYTES # (AUTO) 2.5 K/uL (20.0-40.0); MEAN CORPUSCULAR HEMOGLOBIN 29.7 uug (24.7-32.8); MEAN CORPUSCULAR HGB CONC 32 g/dL (32.3-35.6); MEAN CORPUSCULAR VOLUME 92.3 fL (75.5-95.3); MONOCYTES # (AUTO) 0.4 K/uL (2.0-10.0); MONOCYTES % (AUTO) 5.9 % (0.0-11.0); NEUTROPHILS # (AUTO) 3.2 K/uL (1.8-8.9); NEUTROPHILS % (AUTO) 50.9 % (38.5-71.5); PLATELET COUNT (AUTO) 312 K/uL (179-408); RED BLOOD CELL COUNT(AUTO) 3.83 MIL/uL (3.63-4.92); WHITE BLOOD COUNT (AUTO) 6.2 K/uL (3.8-11.8)
--- NOTE | 2020-11-28 05:55 | NUR ---
Shift End Report: Slept good. Medicated once for pain. No further complaint presented. All needs attended and met. No significant event reported. VS stable. No s/s of hypo/hyperglycemia. Continue current rehab plan of care.
[2020-11-28 06:14] LABS: BILIRUBIN,DIRECT 0.2 mg/dL (0.0-0.2); BILIRUBIN,TOTAL 0.3 mg/dL (0.2-1.0); CREATININE 0.7 mg/dL (0.6-1.3); PHOSPHOROUS 4.9 mg/dL (2.5-4.9); POTASSIUM 3.6 mmol/L (3.5-5.1); TOTAL PROTEIN, SERUM 6.6 g/dL (6.4-8.2)
[2020-11-28] MEDS: LEVOTHYROXINE SODIUM 100 MCG TABLET PO SCH (06:24)
[2020-11-28] MEDS: PANTOPRAZOLE SODIUM 40 MG TABLET.DR PO SCH (06:24)
[2020-11-28] MEDS: BLOOD SUGAR DIAGNOSTIC 1 EACH STRIP VI SCH ×2 (06:26→11:22)
[2020-11-28 07:30] VITALS: BP 112/56
[2020-11-28] MEDS: HYDROCODONE/APAP 5-325MG TABLET PO PRN (08:27)
[2020-11-28] MEDS: POTASSIUM CHLORIDE 20 MEQ TAB.PRT.SR PO SCH (09:09)
[2020-11-28] MEDS: GABAPENTIN 100 MG CAPSULE PO SCH ×2 (09:09→15:00)
[2020-11-28] MEDS: ESCITALOPRAM OXALATE 10 MG TABLET PO SCH (09:09)
[2020-11-28] MEDS: predniSONE 5 MG TABLET PO SCH (09:09)
[2020-11-28] MEDS: METFORMIN HCL 500 MG TABLET PO SCH (09:09)
[2020-11-28] MEDS: FUROSEMIDE 20 MG TABLET PO SCH (09:09)
[2020-11-28] MEDS: FOLIC ACID 1 MG TABLET PO SCH (09:09)
[2020-11-28] MEDS: APIXABAN 5 MG TABLET PO SCH (09:13)
--- NOTE | 2020-11-28 13:00 | NUR ---
dr rasmussen made aware about patient request to prescribe norco, per dr rasmussen he is going to send it over electronically, pharmacy information given to dr rasmussen
--- NOTE | 2020-11-28 14:00 | NUR ---
patient discharged home with her , no distress noted, belongings are accounted and signed, patient is alert ,oriented x4, no sob, continuous on o2 via nasal canula, stated he has oxygen in his car, patient teaching provided about home care and about mediations, patient verbalized understanding of it, follow up with dr acuna in one week, provided number to call and make apt, patient verbalized understanding of it, skin intact, Midline removed. escorted patient to his car safely.
[2020-12-20] MEDS ORDERED: CYANOCOBALAMIN 1000 MCG/ML VIAL IM SCH (09:00)
== END 2020-11-28 13:45 | disposition home health service (06) | DRG 189 ==
PROVIDERS: ADMIT Physical Medicine & Rehabilitation Pain Medicine; ATTEND Physical Medicine & Rehabilitation Pain Medicine
DX: J96.21 Acute and chronic respiratory failure with hypoxia (principal); I50.33 Acute on chronic diastolic (congestive) heart failure; G72.0 Drug-induced myopathy; J84.9 Interstitial pulmonary disease, unspecified; D64.9 Anemia, unspecified; E03.9 Hypothyroidism, unspecified; Z91.018 Allergy to other foods; E09.9 Drug or chemical induced diabetes mellitus without complications; T38.0X5D Adverse effect of glucocorticoids and synthetic analogues, subsequent encounter; F43.10 Post-traumatic stress disorder, unspecified; J44.9 Chronic obstructive pulmonary disease, unspecified; Z87.01 Personal history of pneumonia (recurrent); I70.0 Atherosclerosis of aorta; M79.7 Fibromyalgia; Z86.711 Personal history of pulmonary embolism; Z87.891 Personal history of nicotine dependence; Z86.16 Personal history of COVID-19; E87.6 Hypokalemia; F25.9 Schizoaffective disorder, unspecified; F31.9 Bipolar disorder, unspecified; Z79.01 Long term (current) use of anticoagulants; Z82.49 Family history of ischemic heart disease and other diseases of the circulatory system; R53.1 Weakness; R53.81 Other malaise; Z88.2 Allergy status to sulfonamides; Z88.8 Allergy status to other drugs, medicaments and biological substances
CPT/HCPCS: 36415; 71045; 83735; 84100; 85025; 85730; 94640; 94664; J1815; J3420; J3590; J7512